=== PATIENT | female | born 1955 | race Asian ===

== ENCOUNTER 2024-02-06 06:58 | Day surgery (SDC) | payer OTHER ==
[~2024-02-06] VITALS: Ht 167.6 cm; Wt 61.8 kg
[~2024-02-06 06:58] MED LIST: LIDOCAINE/PF 2% 5 ML VIAL ONE; PROPOFOL 1% 20 ML VIAL IVP ONE; SODIUM CHLORIDE 0.9% 1,000 ML ONE
[2024-02-06] MEDS: SODIUM CHLORIDE 0.9% 1,000 ML IV ONE (07:42)
[2024-02-06] MEDS ORDERED: ACET-2080 PO (08:38)
[2024-02-06] MEDS ORDERED: [UNRECOGNIZED DRUG - CODE] (08:38)
[2024-02-06] MEDS ORDERED: [UNRECOGNIZED DRUG - CODE] (08:38)
[2024-02-06] MEDS ORDERED: LOSA-382 PO (08:38)
[2024-02-06] MEDS ORDERED: PROP10DR15 OU (08:38)
[2024-02-06] MEDS ORDERED: LINA5TAB PO (08:38)
[2024-02-06] MEDS ORDERED: KETO-100 OU (08:38)
[2024-02-06] MEDS ORDERED: PIOG15TA66 PO (08:38)
[2024-02-06] MEDS ORDERED: TOPI25 PO (08:38)
[2024-02-06] MEDS ORDERED: BENZ100C68 PO (08:38)
[2024-02-06] MEDS ORDERED: OS500 PO (08:38)
[2024-02-06] MEDS ORDERED: DICL100G60 TP (08:38)
[2024-02-06] MEDS ORDERED: [UNRECOGNIZED DRUG - CODE] (08:38)
[2024-02-06] MEDS ORDERED: ROSU40TA88 PO (08:38)
[2024-02-06] MEDS ORDERED: ACET-2895 PO (08:38)
[2024-02-06] MEDS ORDERED: FLUT12AE20 IH (08:38)
[2024-02-06] MEDS ORDERED: METF-446 PO (08:38)
[2024-02-06] MEDS ORDERED: DULA4.5P SQ (08:38)
[2024-02-06] MEDS ORDERED: [UNRECOGNIZED DRUG - CODE] (08:38)
[2024-02-06] MEDS ORDERED: FLUT16SP NASAL (08:43)
[2024-02-06] MEDS ORDERED: [UNRECOGNIZED DRUG - CODE] PO (08:43)
[2024-02-06 09:20] LABS: GLUCOMETER DEV NAME(LOC) SDS.; GLUCOSE,POINT OF CARE 93 MG/DL (70-110)
[2024-02-06 10:08] VITALS: PULSE 76; RESP 18; O2SAT 100
== END 2024-02-06 10:38 | disposition home or self-care (01) ==
LOC: SURGERY 06:58
PROVIDERS: ATTEND Internal Medicine Gastroenterology
DX: K21.9 Gastro-esophageal reflux disease without esophagitis (principal); K29.70 Gastritis, unspecified, without bleeding; Z86.73 Personal history of transient ischemic attack (TIA), and cerebral infarction without residual deficits; E11.9 Type 2 diabetes mellitus without complications; J45.909 Unspecified asthma, uncomplicated; I10 Essential (primary) hypertension; E78.5 Hyperlipidemia, unspecified; Z98.890 Other specified postprocedural states
CPT/HCPCS: 43239; 82962; 88305; J2704; J3490; J7030